=== PATIENT | female | born 1990 | race Two or more races ===

== ENCOUNTER 2025-06-03 10:10 | Day surgery (SDC) | payer OTHER, SELFPAY ==
[2025-06-02 10:23] VITALS: BMI 53.8
[2025-06-02 11:54] LABS: Basophils # (Auto) 0.0 Thou/mm3 (0.0-0.2); Basophils % (Auto) 1 % (0-2.5); Eosinophils # (Auto) 0.2 Thou/mm3 (0.0-0.5); Eosinophils % (Auto) 3 % (0-10); Hematocrit 40.2 % (36.0-46.0); Hemoglobin 13.2 g/dL (12.0-16.0); Immature Granulocytes Auto 0.02 Thou/mm3 (0.00-0.00); Lymphocytes # (Auto) 2.3 Thou/mm3 (1.0-4.8); Lymphocytes % (Auto) 27 % (10-50); Mean Corpuscular HGB Conc 32.8 g/dl (31.0-37.0); Mean Corpuscular Hemoglobin 28.4 pg (25.0-35.0); Mean Corpuscular Volume 87 fL (80-100); Monocytes # (Auto) 0.5 Thou/mm3 (0.0-0.8); Monocytes % (Auto) 6 % (0-12); Neutrophils # (Auto) 5.4 Thou/mm3 (1.8-7.7); Neutrophils % (Auto) 64 % (37-80); Nucleated Red Blood Cell # 0.00 Thou/mm3 (0.00-0.00); Nucleated Red Blood Cell % 0 /100 WBC (0); Platelet Count 253 Thou/mm3 (140-440); RDW Standard Deviation 47.8 fL (36.4-46.3); Red Blood Count 4.64 Miln/mm3 (4.00-5.20); White Blood Count 8.5 Thou/mm3 (3.6-11.0)
[2025-06-02 12:03] LABS: Alanine Aminotransferase 25 U/L (10-49); Albumin, Serum 4.3 gm/dL (3.5-5.0); Albumin/Globulin Ratio 1.3 (1.2-2.2); Alkaline Phosphatase 83 U/L (46-116); Anion Gap 9 (7-16); Aspartate Amino Transferase 19 U/L (0-34); BUN/Creatinine Ratio 17 Ratio (12-20); Bilirubin,Total 0.5 mg/dL (0.3-1.2); Blood Urea Nitrogen 10 mg/dL (9-23); Calcium 9.1 mg/dL (8.3-10.6); Calcium (Corrected) 9.1 mg/dL (8.5-10.1); Carbon Dioxide 25.4 mMol/L (20.0-31.0); Chloride 106 mMol/L (98-107); Creatinine (Component) 0.6 mg/dL (0.6-1.3); Estimated Creatinine Clearance 190.3 mL/min (>60); Globulin 3.2 gm/dL (2.3-3.5); Glucose 91 mg/dL (74-106); HCG,Qualitative Serum Negative; Osmolality,Calculated 278 (275-295); Potassium 4.5 mMol/L (3.4-5.1); Sodium 140 mMol/L (136-145); Total Protein 7.5 gm/dL (5.7-8.2); eGFR > 60 See Note
[2025-06-02 12:41] LABS: INR 0.9 (0.9-1.3); Partial Thromboplastin Time 28.9 Seconds (22.0-36.0); Prothrombin Time 9.8 Seconds (9.0-12.2)
[2025-06-03] VITALS (8 sets, daily range): BP systolic 122–144; BP diastolic 67–82; PULSE 63–86; RESP 12–25; TEMP 36.2–36.6; O2SAT 94–98; BMI 54.4
--- NOTE | 2025-06-03 10:56 | CHAP ---
Visited with patient giving encouragement and prayer before procedure.
[2025-06-03] MEDS: RINGERS LACTATED 1000 ML 1,000 ML 20 ML IV (11:20)
--- NOTE | 2025-06-03 13:55 | SUR.PHASEI ---
pt received from OR in recovery bay 3. pt obtunded, breathing unlabored on oxymask 10l, oral airway in place. v/s stable. pt dressing to lower abd cdi. report received from Dr. Ring and Jagdeep Ridley.
--- NOTE | 2025-06-03 14:01 | ESOP_ITS ---
Date of Procedure 06/03/25 Pre Op Diagnosis Hidradenitis of the pubic region Post Op Diagnosis Same Procedure Wide excision of the hidradenitis pubic region Findings Patient was found to have an infected skin with chronic recurrent abscesses over the pubic region measuring 6 cm x 3 cm. Procedure Description After the patient was brought to the operating room LMA anesthesia was given. Then the mons pubis which she abdomen prepped with Betadine solution. Then I measured this area which was about 6 cm in length and 3 cm in width and it s howed purulent drainage. Patient received 2 g of Ancef. Then I made the incision all around the area of infected skin and removed it total. The infection was confined only to the skin and the subcutaneous tissue was clean. Bleeding was well-controlled with 3-0 chromic. At the end I closed the wound with 3-0 chromic sutures for the subcutaneous tissue and left the wound open for secondary closure. It was dressed with wet-to-dry fluff and tape. Patient tolerated the procedure well Anesthesia other (General LMA) Pathology / specimen Other (Excised skin) Estimated Blood Loss 30 Surgeon Chandler Blunt MD Surgical Staff Operation Date: 06/03/25 12:15 <No data on this case meets the specified criteria>
[2025-06-03] MEDS: HYDROmorphone INJ 2 MG/ML VIAL 0.4 MG IVP ×2 (14:16→14:27)
[2025-06-03] MEDS: fentaNYL CIT INJ 50 mCg/ML AMP 2ML 25 MCG IVP ×2 (14:37→14:51)
--- NOTE | 2025-06-03 15:00 | SUR.PHASEII ---
pt able to tolerate oral fluids without difficulty swallowing or nausea/vomiting.
--- NOTE | 2025-06-03 15:24 | SUR.PHASEII ---
pt awake and alert, breathing unlabored on room air. v/s stable. pt dressing to lower abd cdi. pt able to transfer to wheelchair with steady gait. d/c instructions given with sister Shadia in room, all questions answered. pt d/c via wheelchair with all belongings.
== END 2025-06-03 15:24 | disposition home or self-care (01) ==
PROVIDERS: PCP Nurse Practitioner Family; Referring Provider Surgery; Visit Provider Surgery
PROC: (CPT 11470; principal; 2025-06-03 12:00)
DX: L73.2 Hidradenitis suppurativa (principal); K65.1 Peritoneal abscess; E66.01 Morbid (severe) obesity due to excess calories; Z68.43 Body mass index [BMI] 50.0-59.9, adult
CPT/HCPCS: 11470; 36415; 80053; 84703; 85025; 85610; 85730; A4217; A4649; J0131; J0690; J1100; J1171; J1885; J2250; J2405; J2704; J3010; J3490; J7120; J0665